=== PATIENT | male | born 1935 | race Caucasian/White ===

== ENCOUNTER 2016-12-15 08:22 | Day surgery (SDC) | payer MEDICARE ==
[~2016-12-15] VITALS: Ht 174 cm; Wt 95.0 kg
[2016-12-15] MEDS ORDERED: SODIUM CHLORIDE 0.9% 1,000 ML IV SCH (08:57)
[2016-12-15 09:20] VITALS: BP 166/89
[2016-12-15] MEDS ORDERED: LIDOCAINE 1%, 20ML ONE (09:25)
[2016-12-15] MEDS ORDERED: CEFAZOLIN PMX 1GM/50ML 50 ML IV ONE (09:30)
[2016-12-15] MEDS ORDERED: MIDAZOLAM 1 MG/ML, 5ML ONE (09:44)
[2016-12-15] MEDS ORDERED: FENTANYL PF 100 MCG/2ML ONE (09:45)
== END 2016-12-15 12:15 | disposition home or self-care (01) ==
LOC: OUT 08:22
PROVIDERS: ATTEND Internal Medicine Hematology & Oncology
DX: C15.9 Malignant neoplasm of esophagus, unspecified (principal); I10 Essential (primary) hypertension; Z87.891 Personal history of nicotine dependence; Z80.0 Family history of malignant neoplasm of digestive organs
CPT/HCPCS: 36561; 76937; 77001; 99156; 99157; C1788; C1894; J0690; J1642; J2250; J3010; J3490; J7030

== ENCOUNTER → 2017-01-26 | Outpatient (CLI) | payer MEDICARE | END | disposition home or self-care (01) | LOC: CARD 11:59 | DX: J18.9 Pneumonia, unspecified organism (principal) | CPT/HCPCS: 94060; 94726; 94729 ==